=== PATIENT | female | born 1985 | race Caucasian/White ===

== ENCOUNTER 2017-07-16 11:23 | Emergency (ER) | payer MEDICAID ==
[2017-07-16 11:29] VITALS: TEMP 98.2
[2017-07-16] MEDS ORDERED: NS 1,000 ML IV ONE (11:49)
[2017-07-16] MEDS ORDERED: KETOROLAC 30 MG/1 ML SDV IVP ONE (11:49)
[2017-07-16] MEDS ORDERED: METOCLOPRAMIDE 10 MG/2 ML VIAL IVP ONE (11:49)
--- NOTE | 2017-07-16 11:50 | EDPHY ---
HPI/HX/ROS/PE/MDM Narrative: CHIEF COMPLAINT: Headache HPI: The patient is a 31-year-old female who complains of gradual onset of headache. The patient developed a minor headache 7 days ago. The headache has progressively worsened. Today the headache increased in severity. She has never experienced a headache quite like this. The headache is localized to one specific area on the left occiput region. She has associated nausea, vomiting, and diplopia. She has tried Excedrin and Acetaminophen without relief. Patient denies recent head trauma. REVIEW OF SYSTEMS: Aside from elements discussed in the HPI, a comprehensive 10-point review of systems was reviewed and is negative. PMH: Seizure disorder. SOCIAL HISTORY: No recent alcohol use. PHYSICAL EXAM: General: Patient is alert, in no acute distress. ENT: Eyes are normal to inspection. ENT inspection normal. Neck: Normal inspection. Full range of motion. Respiratory: No respiratory distress. Breath sounds normal bilaterally. Cardiovascular: Regular rate and rhythm. Strong peripheral pulses. Abdomen: The abdomen is nontender to palpation. There are no peritoneal signs. There are normal bowel sounds. Back: Normal to inspection. No tenderness to palpation. Skin: Normal color. No rash. Warm and dry. Extremities: Normal appearance. Full range of motion. Neuro: Oriented x3. Normal motor function. Normal sensory function. ED Course: Patient presents with gradual onset of headache. Headache is severe. She has no history of migraine headaches. Patient received IV Reglan, Benadryl, Toradol, and Dilaudid to treat headache. CT head is negative. 1345: I reevaluated the patient. Her headache has improved with the medications. I discussed findings with the patient. I offered LP and further testing. Patient declines. She would like to go home with pain medication to treat symptoms. Strict return precautions given. - Data Points Imaging Results: Imaging Impressions Head CT 07/16/17 11:49 Impression: Head CT within normal limits. Results called to Dr. Ybarra General information for patients regarding this examination can be found at [email or web address]. If you have questions or comments about this report, please contact me at (hospital) or [phone] (cell). Imaging: Discussed imaging studies w/ unhairing machine operator Radiologist Medications Given: Discontinued Medications Diphenhydramine HCl (Benadryl Injection) 25 mg IVP EDNOW ONE Stop: 07/16/17 11:50 Last Admin: 07/16/17 12:00 Dose: 25 mg Hydromorphone HCl (Dilaudid) 0.5 mg IVP EDNOW ONE Stop: 07/16/17 12:41 Last Admin: 07/16/17 12:51 Dose: 0.5 mg Sodium Chloride (Ns) 1,000 mls @ 0 mls/hr IV ONCE ONE; Wide Open PRN Reason: Protocol Stop: 07/16/17 11:50 Last Admin: 07/16/17 11:58 Dose: 1,000 mls Ketorolac Tromethamine (Toradol) 30 mg IVP EDNOW ONE Stop: 07/16/17 11:50 Last Admin: 07/16/17 11:59 Dose: 30 mg Metoclopramide HCl (Reglan Injection) 10 mg IVP EDNOW ONE Stop: 07/16/17 11:50 Last Admin: 07/16/17 12:01 Dose: 10 mg General Time Seen by Provider: 07/16/17 11:33 Initial Vital Signs: Initial Vital Signs Temperature (C) 36.8 C 07/16/17 11:24 Heart Rate 83 07/16/17 11:24 Respiratory Rate 18 07/16/17 11:24 Blood Pressure 136/107 H 07/16/17 11:24 O2 Sat (%) 95 07/16/17 11:24 O2 Delivery Mode Room Air Allergies/Adverse Reactions: carbamazepine [From Tegretol] Allergy (Intermediate, Verified 07/16/17 11:29) Hives prochlorperazine [From Compazine] Allergy (Intermediate, Verified 07/16/17 11:29 ) panic attacks Home Medications: Medication Instructions Recorded Hydrocodone/APAP 5/325 [[place] 1 - 2 tab PO Q4H PRN #7 tab 07/16/17 5/325 (RX)] Departure - Departure Disposition: Home, Routine, Self-Care Clinical Impression: Headache Qualifiers: Headache type: unspecified Headache chronicity pattern: acute headache Intractability: not intractable Qualified Code(s): R51 - Headache Condition: Good Instructions: Migraine Headache (ED) Additional Instructions: You have been referred to a primary care physician deena, please call to arrange a follow-up within 72 hours if headache persists. You have also been referred to the insulation technician neurologist. For further testing please call to arrange a followup appointment. Return to the emergency department immediately for recurrence of headache, nausea, vomiting, numbness, weakness, neck pain, fever or other concerns. Use Tylenol and/or ibuprofen as directed. Referrals: Rodrigo Harp DO [Medical Doctor] - As per Instructions (Neurologist) Lilian Booker MD [place] [place] - As per Instructions (Primary Care Physician) Prescriptions: Hydrocodone/APAP 5/325 [[place] 5/325 (RX)] 1 - 2 tab PO Q4H PRN #7 tab PRN Reason: Pain, Moderate Report Scribed for: Alberto Ybarra Report Scribed by: Lucita Millan Date of Report: 07/16/17 Time of Report: 11:50 Physician Review and Approval Statement: Portions of this note were transcribed by a biomedical manager. I personally performed the history, physical exam, and medical decision-making; and confirmed the accuracy of the information in the transcribed note.
[2017-07-16] MEDS ORDERED: HYDROmorphONE/DILAUDID 1 MG/ML SYR IVP ONE (12:40)
[2017-07-16 12:52] VITALS: PULSE 62; RESP 16
[2017-07-16 14:21] VITALS: BP 125/84; O2SAT 95
== END 2017-07-16 14:16 | disposition home or self-care (01) ==
DX: R51 Headache (principal); E86.9 Volume depletion, unspecified
CPT/HCPCS: 96374; J1170; J1200; J1885; J2765

== ENCOUNTER 2017-07-18 04:16 | Emergency (ER) | payer MEDICAID ==
--- NOTE | 2017-07-18 04:19 | EDPHY ---
H & P HPI/ROS: HPI CHIEF COMPLAINT: Headache, recent ER visit HISTORY OF PRESENT ILLNESS: This patient very pleasant 31-year-old female she does have significant past medical history for seizures but does not take any seizure medication she presents to the emergency room with a headache. She states this headache has been present for approximately 9 days it is left-sided posterior occiput region. Stays in 1 focal area. She does have light sensitivity. She endorses nausea vomiting this evening. She also endorses some mild neck pain. Denies any visual disturbance. She was recently seen here in the emergency room and that time had a negative CT scan of her head received a migraine cocktail felt better went home. She returns this evening as the headache has continued on. And has gotten worse with onset of nausea vomiting. Denies fever. Denies stiff neck. Denies trauma. She does not have a headache history. Denies history of daily headaches or migraines. This headache was not sudden onset 9 days ago. Past Medical History: No significant medical history except for seizure Past Surgical History: No recent surgical history Social History: Denies daily use of alcohol, smokes marijuana, denies tobacco Family History: Noncontributory ROS REVIEW OF SYSTEMS: A comprehensive 10 point review of systems is otherwise negative aside from elements mentioned in the history of present illness. Exam Constitutional appears well nontoxic, triage nursing summary reviewed, vital signs reviewed, awake/alert. Eyes normal conjunctivae and sclera, EOMI, PERRLA. HENT normal inspection, atraumatic, moist mucus membranes, no epistaxis, neck supple/ no meningismus, no raccoon eyes. Respiratory clear to auscultation bilaterally, normal breath sounds, no respiratory distress, no wheezing. Cardiovascular rate normal, regular rhythm, no murmur, no edema, distal pulses normal. Gastrointestinal soft, non-tender, no rebound, no guarding, normal bowel sounds, no distension, no pulsatile mass. Genitourinary no CVA tenderness. Musculoskeletal no midline vertebral tenderness, full range of motion, no calf swelling, no tenderness of extremities, no meningismus, good pulses, neurovascularly intact. Skin pink, warm, & dry, no rash, skin atraumatic. Neurologic normal neurological exam without any meningeal signs, awake, alert and oriented x 3, AAOx3, moves all 4 extremities equally, motor intact, sensory intact, CN II-XII intact, normal cerebellar, normal vision, normal speech. Psychiatric normal mood/affect. Heme/Lymph/Immune no lymphadenopathy. Differential Diagnosis: Includes but is not limited to in a particular order, migraine headache, tension headache, cluster headache, intracranial bleed, meningitis, viral meningitis, bacterial meningitis Medical Decision Making: Plan for this patient IV establishment with IV fluid bolus, migraine cocktail, check basic blood work and consent for lumbar puncture. Re-evaluation: 0432AM: Given that this is this patient's 2nd ER visit for headache with no headache history and she is now complaining of some neck pain I explained we should do a lumbar puncture. She verbally consented to this. She understands the risk versus benefit of this. Her neurological exam here in the emergency room is unremarkable. She has no focal neuro deficit. I do not feel that she needs to be imaged again. Procedure: Lumbar puncture. Indication: Severe GONZALEZ After verbal informed consent from patient explaining the risks including infection, bleeding, and neurologic damage, a lumbar puncture was performed after the patient was prepped and draped in the usual fashion. The back was anesthetized with 1% lidocaine. Approximately 4 cc of clear fluid was obtained. Opening pressure was not obtained. There were no complications. The procedure was performed by myself. CSF studies reviewed. No evidence of infection or Bleed. 0523AM I did re-evaluate the patient's time she still complaining of a headache. She did receive a migraine cocktail. I have ordered her 15 mg IV ketamine. See if this improves her headache. 0557AM: I did re-evaluate the patient at this time. She is resting comfortably. Neurological exam is unremarkable. Blood work is reassuring. CSF studies are negative for bleed or infection. Patient does feel better after IV ketamine. She is agreeable going home. I recommend she rest, dark environment , stay well-hydrated follows up with Neurology. No narcotics as they can cause rebound headache. Recommend ibuprofen. Return if any worsening symptoms questions or concerns. I did go over return precautions status post LP she understands. Source: Patient - Medical/Surgical History Other PMH: sz - Social History Smoking Status: Former smoker Constitutional: Initial Vital Signs Temperature (C) 36.9 C 07/18/17 04:17 Heart Rate 91 07/18/17 04:17 Respiratory Rate 18 07/18/17 04:17 Blood Pressure 120/99 H 07/18/17 04:17 O2 Sat (%) 92 07/18/17 04:17 O2 Delivery Mode Room Air O2 (L/minute) 2 Allergies/Adverse Reactions: carbamazepine [From Tegretol] Allergy (Intermediate, Verified 07/18/17 04:22) Hives prochlorperazine [From Compazine] Allergy (Intermediate, Verified 07/18/17 04:22 ) panic attacks Home Medications: Medication Instructions Recorded Hydrocodone/APAP 5/325 [[place] 1 - 2 tab PO Q4H PRN #7 tab 07/16/17 5/325 (RX)] Ibuprofen [Motrin (*)] 800 mg PO Q6-8PRN #7 tab 07/18/17 Medical Decision Making - Data Points Laboratory Results: Laboratory Results 07/18/17 04:30 07/18/17 04:30 07/18/17 07/18/17 07/18/17 05:00 05:00 04:55 WBC RBC Hgb Hct MCV MCH MCHC RDW Plt Count MPV Neut % (Auto) Lymph % (Auto) [place] % (Auto) Eos % (Auto) Baso % (Auto) Nucleat RBC Rel Count Absolute Neuts (auto) Absolute Lymphs (auto) Absolute Monos (auto) Absolute Eos (auto) Absolute Basos (auto) Absolute Nucleated RBC Immature Gran % Immature Gran # Sodium Potassium Chloride Carbon Dioxide Anion Gap BUN Creatinine Estimated GFR Glucose Calcium CSF Tube Number 1 4 CSF Appearance CLEAR CLEAR (CLEAR) (CLEAR) CSF Color COLORLESS COLORLESS (COLORLESS) (COLORLESS) CSF Supernatant COLORLESS COLORLESS (COLORLESS) (COLORLESS) CSF WBC 2 /mm3 /mm3 0 /mm3 /mm3 (0-5) (0-5) CSF RBC 10 /mm3 H /mm3 7 /mm3 H /mm3 (0-0) (0-0) CSF Glucose 57 mg/dL mg/dL (50-75) CSF Total Protein 31 mg/dL mg/dL (12-60) CSF [place] IgG Ab Pending CSF [place] IgM Ab Pending CSF [place] Interp Pending 07/18/17 07/18/17 04:30 04:30 WBC 4.51 10^3/uL 10^3/uL (3.80-9.50) RBC 4.44 10^6/uL 10^6/uL (4.18-5.33) Hgb 14.3 g/dL g/dL (12.6-16.3) Hct 42.6 % % (38.0-47.0) MCV 95.9 fL fL (81.5-99.8) MCH 32.2 pg pg (27.9-34.1) MCHC 33.6 g/dL g/dL (32.4-36.7) RDW 12.9 % % (11.5-15.2) Plt Count 219 10^3/uL 10^3/uL (150-400) MPV 10.1 fL fL (8.7-11.7) Neut % (Auto) 33.2 % L % (39.3-74.2) Lymph % (Auto) 50.1 % H % (15.0-45.0) [place] % (Auto) 9.3 % % (4.5-13.0) Eos % (Auto) 4.7 % % (0.6-7.6) Baso % (Auto) 1.6 % % (0.3-1.7) Nucleat RBC Rel Count 0.0 % % (0.0-0.2) Absolute Neuts (auto) 1.50 10^3/uL L 10^3/uL (1.70-6.50) Absolute Lymphs (auto) 2.26 10^3/uL 10^3/uL (1.00-3.00) Absolute Monos (auto) 0.42 10^3/uL 10^3/uL (0.30-0.80) Absolute Eos (auto) 0.21 10^3/uL 10^3/uL (0.03-0.40) Absolute Basos (auto) 0.07 10^3/uL 10^3/uL (0.02-0.10) Absolute Nucleated RBC 0.00 10^3/uL 10^3/uL (0-0.01) Immature Gran % 1.1 % % (0.0-1.1) Immature Gran # 0.05 10^3/uL 10^3/uL (0.00-0.10) Sodium 141 mEq/L mEq/L (134-144) Potassium 3.9 mEq/L mEq/L (3.5-5.2) Chloride 108 mEq/L mEq/L (97-110) Carbon Dioxide 20 mEq/l L mEq/l (22-31) Anion Gap 13 mEq/L mEq/L (8-16) BUN 5 mg/dL L mg/dL (7-23) Creatinine 0.8 mg/dL mg/dL (0.6-1.0) Estimated GFR > 60 Glucose 90 mg/dL mg/dL (70-100) Calcium 9.2 mg/dL mg/dL (8.5-10.4) CSF Tube Number CSF Appearance CSF Color CSF Supernatant CSF WBC CSF RBC CSF Glucose CSF Total Protein CSF [place] IgG Ab CSF [place] IgM Ab CSF [place] Interp Microbiology Results: MICROBIOLOGY 07/18/17 05:00 Cerebral Spinal Fluid Gram Stain - Final Medications Given: Discontinued Medications Dexamethasone (Decadron Injection) 10 mg IVP EDNOW ONE Stop: 07/18/17 04:30 Last Admin: 07/18/17 04:37 Dose: 10 mg Diphenhydramine HCl (Benadryl Injection) 50 mg IVP EDNOW ONE Stop: 07/18/17 04:30 Last Admin: 07/18/17 04:37 Dose: 50 mg Sodium Chloride (Ns) 1,000 mls @ 0 mls/hr IV ONCE ONE; Wide Open PRN Reason: Protocol Stop: 07/18/17 04:30 Last Admin: 07/18/17 04:37 Dose: 1,000 mls Ketamine HCl (Ketamine) 15 mg IVP EDNOW ONE Stop: 07/18/17 05:23 Last Admin: 07/18/17 05:24 Dose: 15 mg Ketorolac Tromethamine (Toradol) 30 mg IVP EDNOW ONE Stop: 07/18/17 04:30 Last Admin: 07/18/17 04:37 Dose: 30 mg Metoclopramide HCl (Reglan Injection) 10 mg IVP EDNOW ONE Stop: 07/18/17 04:30 Last Admin: 07/18/17 04:37 Dose: 10 mg Departure - Departure Disposition: Home, Routine, Self-Care Clinical Impression: Migraine headache Qualifiers: Migraine type: other Status migrainosus presence: with status migrainosus Intractability: not intractable Qualified Code(s): G43.801 - Other migraine, not intractable, with status migrainosus Condition: Good Instructions: Migraine Headache (ED), Acute Headache (ED) Additional Instructions: 1. Stay well-hydrated drink lots of fluids. 2. Follow-up with Neurology. Please call their for an outpatient appointment. 3. Return emergency room if you have worsening pain vomiting or fever. Referrals: NONE *PRIMARY CARE P,. [Primary Care Provider] - As per Instructions Prescriptions: Ibuprofen [Motrin (*)] 800 mg PO Q6-8PRN #7 tab
[2017-07-18 04:21] VITALS: TEMP 98.4
[2017-07-18] MEDS ORDERED: NS 1,000 ML IV ONE (04:29)
[2017-07-18] MEDS ORDERED: DEXAMETHASONE 10 MG/ML VIAL IVP ONE (04:29)
[2017-07-18] MEDS ORDERED: METOCLOPRAMIDE 10 MG/2 ML VIAL IVP ONE (04:29)
[2017-07-18] MEDS ORDERED: KETOROLAC 30 MG/1 ML SDV IVP ONE (04:29)
[2017-07-18 04:44] LABS: % IMMATURE GRANULYOCYTES 1.1 % (0.0-1.1); ABSOLUTE IMMATURE GRANULOCYTES 0.05 10^3/uL (0.00-0.10); ADD DIFF? NO; ADD MORPH? NO; ADD SCAN? NO; ATYPICAL LYMPHOCYTE FLAG 10 (0-99); FRAGMENT RBC FLAG 0 (0-99); HEMATOCRIT 42.6 % (38.0-47.0); HEMOGLOBIN 14.3 g/dL (12.6-16.3); LEFT SHIFT FLG 10 (0-99); LIPEMIA HEMOLYSIS FLAG 80 (0-99); MEAN CELL HEMOGLOBIN 32.2 pg (27.9-34.1); MEAN CELL HEMOGLOBIN CONCENTR. 33.6 g/dL (32.4-36.7); MEAN CELL VOLUME 95.9 fL (81.5-99.8); MEAN PLATELET VOLUME 10.1 fL (8.7-11.7); PLATELET CLUMPS FLAG 20 (0-99); PLATELET COUNT 219 10^3/uL (150-400); RED BLOOD CELL COUNT 4.44 10^6/uL (4.18-5.33); RED CELL DISTRIBUTION WIDTH 12.9 % (11.5-15.2)
[2017-07-18 04:56] VITALS: O2SAT 98
[2017-07-18 04:56] LABS: ANION GAP 13 mEq/L (8-16); CALCIUM 9.2 mg/dL (8.5-10.4); CARBON DIOXIDE 20 mEq/l (22-31); CHLORIDE 108 mEq/L (97-110); CREATININE 0.8 mg/dL (0.6-1.0); GLOMERULAR FILTRATION RATE > 60; GLUCOSE 90 mg/dL (70-100); POTASSIUM 3.9 mEq/L (3.5-5.2); SODIUM 141 mEq/L (134-144)
[2017-07-18 05:13] LABS: CSF APPEARANCE CLEAR (CLEAR); CSF COLOR COLORLESS (COLORLESS); CSF SUPERNATANT COLORLESS (COLORLESS); WBC, CSF 2 /mm3 (0-5)
[2017-07-18 05:18] LABS: CSF APPEARANCE CLEAR (CLEAR); CSF COLOR COLORLESS (COLORLESS); CSF SUPERNATANT COLORLESS (COLORLESS); WBC, CSF 0 /mm3 (0-5)
[2017-07-18 05:20] LABS: PROTEIN, CSF 31 mg/dL (12-60)
[2017-07-18] MEDS ORDERED: KETAMINE 100 MG/10 ML SYR IVP ONE (05:22)
[2017-07-18 06:26] VITALS: BP 129/81; PULSE 78; RESP 16
== END 2017-07-18 06:26 | disposition home or self-care (01) ==
PROC: 009U3ZX Drainage of Spinal Canal, Percutaneous Approach, Diagnostic (ICD-10-PCS; principal; 2017-07-18)
DX: G43.801 Other migraine, not intractable, with status migrainosus (principal); E86.9 Volume depletion, unspecified; Z87.891 Personal history of nicotine dependence
CPT/HCPCS: 96374; J1100; J1200; J1885; J2765